=== PATIENT | female | born 1930 | race Caucasian/White ===

== ENCOUNTER 2016-12-13 15:17 | Emergency (ER) | payer MEDICARE, BC ==
--- NOTE | 2016-12-13 15:38 | ERNOTE ---
Medical Problem HPI - General Time Seen by Provider: 12/13/16 15:35 Source: patient Exam Limitations: no limitations - Immun/Allergies/Home Medications Allergies/Adverse Reactions: Allergies No Known Allergies Allergy (Verified 12/13/16 15:47) Home Medications: HOME MEDICATIONS Ibuprofen [Motrin] 400 mg PO TID PRN #30 tab 12/13/16 [Last Taken Unknown] - History of Present History Narrative: This patient is brought in via EMS for having fallen off of her stool at a restaurant and hitting her head. Patient denies any loss of consciousness she complains of some sacral pain and some pain in her neck she is alert and oriented and she has a laceration on her occipital scalp. Review of Systems - Review of Systems Constitutional: Present: no symptoms reported EYE: Present: no symptoms reported ENT: Present: no symptoms reported Respiratory: Present: no symptoms reported Cardiology: Present: no symptoms reported Gastrointestinal/Abdominal: Present: no symptoms reported Genitourinary: Present: no symptoms reported Musculoskeletal: Present: See HPI Physical Exam - Physical Exam General Appearance: Present: wd/wn, alert, no apparent distress Head Exam: Present: other - patient has a 1.2 cm superficial scalp laceration to the left occipitoparietal region of the scalp and one approximately 2 inches inferior to that approximately 1 cm and very superficial. She does have a small skin tear on the lateral aspect of her right knee which does not require stitches Eye Exam: Normal inspection: bilateral, PERRL: bilateral, EOMI: bilateral Ears, Nose, Throat: Present: normal ENT inspection Neck: Present: normal inspection, nontender Respiratory: Present: no respiratory distress, normal breath sounds, no accessory muscle use, chest nontender, lungs clear Cardiovascular/Chest: Present: regular rate, rhythm, no murmur, normal peripheral pulses Extremity Exam: Present: normal inspection, normal range of motion Neurological Exam: Present: alert, oriented, normal mood/affect - patient is completely neurologically intact without any focal neurological deficits ED Progress - Vital Signs Patient's Vital Signs:: I have reviewed the patient's vital signs. Plan - Plan Plan: CT of the head and C-spine are within normal ranges for this patient's age and stage, lacerations on patient's occipitoparietal scalp was cleansed and anesthetized with 1 mL of lidocaine with a NC on each laceration on either borders and using sandra 4 sandra were placed for the superior laceration and 2 were placed for the inferior 1 patient tolerated the procedure very well. Tdap will be administered to the patient Departure Clinical Impression: Scalp laceration Qualifiers: Encounter type: initial encounter Qualified Code(s): S01.01XA - Laceration without foreign body of scalp, initial encounter - Departure Disposition: Home self-care Condition: Good Instructions: Laceration Care, Adult, [id number] Additional Instructions: Please follow up with her primary care doctor for staple removal in approximately 1 week. Prescriptions: Ibuprofen [Motrin] 400 mg PO TID PRN #30 tab PRN Reason: Pain
[2016-12-13] MEDS ORDERED: DIPHTH,PERTUSS(ACELL),TET VAC 0.5 ML VIAL IM ONE ×2 (16:53→16:59)
[2016-12-13 17:24] VITALS: BP 161/67
== END 2016-12-13 17:12 | disposition home or self-care (01) ==
LOC: ER 15:17
PROC: 0HQ0XZZ Repair Scalp Skin, External Approach (ICD-10-PCS; principal; 2016-12-13)
DX: S01.01XA Laceration without foreign body of scalp, initial encounter (principal); W07.XXXA Fall from chair, initial encounter; Y93.89 Activity, other specified; Y92.511 Restaurant or cafe as the place of occurrence of the external cause; Z23 Encounter for immunization

== ENCOUNTER 2017-09-04 11:21 | Inpatient (IN) ==
--- NOTE | 2017-09-04 11:42 | ERNOTE ---
Neuro HPI ER Record Presenting Symptoms: other Time Seen by Provider: 09/04/17 11:22 Source: family Exam Limitations: dementia Immunizations: IMMUNIZATION HX Immunizations Up to Date Yes History of Influenza Vaccine More Information Required Hx Pneumococcal Vaccination More Information Required Allergies/Adverse Reactions: Allergies Allergy/AdvReac Type Severity Reaction Status Date / Time No Known Allergies Allergy Verified 09/04/17 11:32 Home Medications: HOME MEDICATIONS Clotrimazole [Lotrimin Cream] 1 appl TP BID 09/04/17 [Last Taken Unknown] - History of Present Illness Narrative: Patient has a history of dementia and has been at [facility] living for two months. She was recently diagnosed with a UTI and treated with macrobid (last dose last night). He daughter reports that she was talking and eating well when she last saw her two days ago. Today the patient is not herself, won' t talk, won't eat, daughter also noticed swelling in her hands and legs that she has not had before. No history available from patient Review of Systems - Narrative Narrative: unable to obtain - Patient's Past Medical History Patient History - Medical: Dementia Patient History - Cardiac/Respiratory: No pertinent hx Patient History - Cancer: No Hx of Cancer Patient History - Surgical Procedures: Cholecystectomy, , Hysterectomy , Other, Orthopedic Patient History - Other: None LMP (females 10-50): Menopausal - Social History Living Situations: assisted living Abuse History: No History of abuse Psych History: No pertinent hx Smoking Status: Never smoker Have you smoked in the past 12 months: No Do you dip or chew tobacco: No Alcohol Use: none Drug Use: none - Immunizations Immunizations Up to Date: Yes Hx Pneumococcal Vaccination: More Information Required to Determine History of Influenza Vaccine: More Information Required to Determine Physical Exam - Physical Exam General Appearance: Present: wd/wn, no apparent distress Head Exam: Present: normal inspection, no evidence of injury Eye Exam: Normal inspection: bilateral, PERRL: bilateral Ears, Nose, Throat: Present: normal pharynx Neck: Present: normal inspection, supple Respiratory: Present: no respiratory distress, normal breath sounds, lungs clear Cardiovascular/Chest: Present: regular rate, rhythm, no murmur Gastrointestinal/Abdominal: Present: nontender, nondistended Extremity Exam: Present: extremity edema - +3 both legs, left leg slighty red senior care up the lower leg and increased temp, though no signs of injury or open wounds Neurological Exam: Present: alert, other - patient follows commands, but doesn' t speak, walks with small shuffeling gait over to bed Skin Exam: Present: normal color, warm/dry [place] Coma Scale - Assess Eye Opening: Spontaneous Motor: Obeys Commands Verbal: None - refuses to speak - Total Coma Scale Total: 11 ED Progress - Results and Orders Patient's Lab Results:: I have reviewed the patient's lab results. - Vital Signs Patient's Vital Signs:: I have reviewed the patient's vital signs. Vital Signs: Vital Signs 09/04/17 11:28 Temperature 36.5 C Pulse Rate 80 Respiratory 17 Rate Blood Pressure 153/59 O2 Sat by Pulse 97 Oximetry - EKG EKG: NSR, other - no acute changes EKG read: Interp. by me - Progress/Reassessment Chief Complaint: Altered Mental Status Progress Note-Subjective: 09/04/17 13:00 discussed with family, patient will be unable to return to [facility] as confused as she is daughter doubts whether patient ever took the antibiotics as she had a hard time swallowing and might have spit out the medications later 09/04/17 13:05 discussed with protective services case workeralex to admit for observation 09/04/17 13:07 discussed with alex Chavez to admit for observation for UTI and early cellulitis, DVT less likely as both legs are swollen and fingers as well okay to start rocephin Departure Clinical Impression: Confusion UTI (urinary tract infection) Qualifiers: Urinary tract infection type: acute cystitis Hematuria presence: with hematuria Qualified Code(s): N30.01 - Acute cystitis with hematuria Dementia Qualifiers: Dementia type: unspecified type Dementia behavioral disturbance: with behavioral disturbance Qualified Code(s): F03.91 - Unspecified dementia with behavioral disturbance Cellulitis Qualifiers: Site of cellulitis: extremity Site of cellulitis of extremity: lower extremity Laterality: left Qualified Code(s): L03.116 - Cellulitis of left lower limb - Departure Disposition: Still a patient Condition: Stable
[2017-09-04 11:53] LABS: Hematocrit 32.7 % (37.0-47.0); Hemoglobin 10.8 gm/dL (12.5-16.0); Mean Cell Volume 92.9 fl (78-100); Mean Corpuscular Hemoglobin 30.7 pg (27-31); Mean Platelet Volume 9.2 fl (8-12.5); Neutrophil # 5.3 K/mm3 (1.3-6.0); Neutrophil % 62.4 % (42-75.0); Platelet Count 302 K/mm3 (150-450); Red Blood Count 3.52 M/mm3 (4.2-5.4); Red Cell Distribution Width 13.7 % (11.5-14.0); White Blood Count 8.4 K/mm3 (4.0-10.5)
[2017-09-04 12:11] LABS: Troponin I Less than 0.017 ng/ml (0.00-0.10)
[2017-09-04 12:13] LABS: ALT 19 U/L (19-67); AST 23 U/L (0-48); Albumin * 3.2 gm/dl (3.4-5.0); Alkaline Phosphatase * 57 U/L (50-170); Anion Gap 9.8 mmol/L (6.8-13.8); BNP * 354 pg/mL (5-550); BUN/Creatinine Ratio 18.6 (9.0-21.6); Bilirubin, Total 0.4 mg/dL (0.0-1.1); Blood Urea Nitrogen 19 mg/dL (3-23); CRP 1.4 mg/dL (0.0-0.9); Ca. Corrected For Albumin 9.8 mg/dL (8.4-10.2); Calcium * 9.5 mg/dL (7.9-10.9); Carbon Dioxide 27.6 mmol/L (24-32.6); Chloride 104 mmol/L (97-106); Glucose * 109 mg/dL (70-110); Potassium 4.4 mmol/L (3.4-4.6); Sodium 137 mmol/L (132-142); Total Protein 6.7 gm/dL (6.2-8.2)
[2017-09-04 12:21] LABS: Urine Bilirubin Negative (NEGATIVE); Urine Ketone Negative (NEGATIVE); Urine Nitrite Negative (NEGATIVE); Urine Protein Negative (NEGATIVE); Urine Urobilinogen Normal (NORMAL)
[2017-09-04 12:31] LABS: Urine Appearance Clear (CLEAR); Urine Blood 5 /ul (NEGATIVE); Urine Color Yellow
[2017-09-04 12:32] LABS: Urine Bacteria TRACE; Urine WBC 25-50 /hpf (0-5)
--- NOTE | 2017-09-04 23:25 | HP ---
Chief Complaint - Chief Complaint Date of Service: 09/04/17 Time of Service: 16:45 Chief Complaint: Altered mental status History of Present Illness: Mabel is an 87 yo female who resides at the dementia unit of her assisted living facility. However it is reported that she is normally very calm and pleasant. Over the last 24 hours she has been more agitated and more confused than her usual. She was recently diagnosed with UTI and started on macrobid. - Patient's Past Medical History Patient History - Medical: Dementia Patient History - Cardiac/Respiratory: No pertinent hx Patient History - Cancer: No Hx of Cancer Patient History - Surgical Procedures: Cholecystectomy, , Hysterectomy , Other, Orthopedic Patient History - Other: None LMP (females 10-50): Menopausal - Family History Mother Family History - Medical: History Unknown Family History - Cardiac/Respiratory: History Unknown Family History - Cancer: History Unknown Father Family History - Medical: History Unknown Family History - Cardiac/Respiratory: History Unknown Family History - Cancer: History Unknown - Social History Living Situations: assisted living Abuse History: No History of abuse Psych History: No pertinent hx, Current tx/ever been on anti-depressants or anti -anxiety meds Smoking Status: Never smoker Have you smoked in the past 12 months: No Do you dip or chew tobacco: No Alcohol Use: none Drug Use: none - Immunizations Immunizations Up to Date: Yes Hx Pneumococcal Vaccination: More Information Required to Determine History of Influenza Vaccine: More Information Required to Determine Review Of Systems (GEN) - Review of Systems Additional Comments: Unable to perform ROS at this time, patient does not communicate with me and there are no family or assisted living facility staff present. Immunizations: IMMUNIZATION HX Immunizations Up to Date Yes History of Influenza Vaccine More Information Required Hx Pneumococcal Vaccination More Information Required Allergies/Adverse Reactions: Allergies Allergy/AdvReac Type Severity Reaction Status Date / Time No Known Allergies Allergy Verified 09/04/17 15:11 Home Medications: HOME MEDICATIONS Acetaminophen [Tylenol] 650 mg PO Q8H PRN 09/04/17 [Last Taken 08/26/17] Clotrimazole [Lotrimin Cream] 1 appl TP BID 09/04/17 [Last Taken Unknown] Multivitamin [Multivitamins] 1 each PO DAILY 09/04/17 [Last Taken 09/03/17] Exam - Exam Vital Signs: Vital Signs - Last Taken Temp 36.7 C 09/04/17 20:00 Pulse 94 09/04/17 20:00 Resp 20 09/04/17 20:00 BP 173/70 09/04/17 20:00 Pulse Ox 99 09/04/17 20:00 Constitutional: Present: No distress, Somnolent, Elderly Respiratory: Present: lungs clear, normal breath sounds Cardiovascular/Chest: Present: regular rate, rhythm, no murmur Abdomen: Present: Normal bowel sounds, soft, nontender, nondistended Skin Exam: Present: normal color, warm/dry, no cyanosis Neurologic: Present: disoriented x 3 Diagnostic Studies: Laboratory Results WBC 8.4 K/mm3 (4.0-10.5) 09/04/17 11:53 RBC 3.52 M/mm3 (4.2-5.4) L 09/04/17 11:53 Hgb 10.8 gm/dL (12.5-16.0) L 09/04/17 11:53 Hct 32.7 % (37.0-47.0) L 09/04/17 11:53 MCV 92.9 fl (78-100) 09/04/17 11:53 MCH 30.7 pg (27-31) 09/04/17 11:53 MCHC 33.0 g/dl (32-36) 09/04/17 11:53 RDW 13.7 % (11.5-14.0) 09/04/17 11:53 Plt Count 302 K/mm3 (150-450) 09/04/17 11:53 MPV 9.2 fl (8-12.5) 09/04/17 11:53 Immature Gran % (Auto) 0.20 % (0.001-0.429) 09/04/17 11:53 Immature Gran # (Auto) 0.02 K/mm3 (0.000-0.0310) 09/04/17 11:53 Neutrophils % 62.4 % (42-75.0) 09/04/17 11:53 Lymphocytes % 25.4 % (20-51) 09/04/17 11:53 Monocytes % 10.5 % (0.0-9) H 09/04/17 11:53 Eosinophils % 1.0 % (0.0-3.0) 09/04/17 11:53 Basophils % 0.5 % (0.0-1.0) 09/04/17 11:53 Nucleated RBC % 0.0 k/mm3 (0-1) 09/04/17 11:53 Neutrophils # 5.3 K/mm3 (1.3-6.0) 09/04/17 11:53 Lymphocytes # 2.13 k/mm3 (1.5-3.5) 09/04/17 11:53 Monocytes # 0.9 k/mm3 (0.0-1.0) 09/04/17 11:53 Eosinophils # 0.1 k/mm3 (0.0-0.7) 09/04/17 11:53 Absolute Basophils 0.0 k/mm3 (0.0-0.1) 09/04/17 11:53 Sodium 137 mmol/L (132-142) 09/04/17 11:53 Plasma Sodium 137 mmol/L (130-142) 09/04/17 11:53 Potassium 4.4 mmol/L (3.4-4.6) 09/04/17 11:53 Chloride 104 mmol/L (97-106) 09/04/17 11:53 Carbon Dioxide 27.6 mmol/L (24-32.6) 09/04/17 11:53 Anion Gap 9.8 mmol/L (6.8-13.8) 09/04/17 11:53 BUN 19 mg/dL (3-23) 09/04/17 11:53 Creatinine 1.02 mg/dL (0.4-1.4) 09/04/17 11:53 Est GFR (Non-Af Amer) 54 mL/min (60-130) L 09/04/17 11:53 BUN/Creatinine Ratio 18.6 (9.0-21.6) 09/04/17 11:53 Random Glucose 109 mg/dL (70-110) 09/04/17 11:53 Calcium 9.5 mg/dL (7.9-10.9) 09/04/17 11:53 Calcium Adj for Albumin 9.8 mg/dL (8.4-10.2) 09/04/17 11:53 Total Bilirubin 0.4 mg/dL (0.0-1.1) 09/04/17 11:53 AST 23 U/L (0-48) 09/04/17 11:53 ALT 19 U/L (19-67) 09/04/17 11:53 Alkaline Phosphatase 57 U/L (50-170) 09/04/17 11:53 Troponin I Less than 0.017 ng/ml (0.00-0.10) 09/04/17 11:53 C-Reactive Prot, Quant 1.4 mg/dL (0.0-0.9) H 09/04/17 11:53 B-Natriuretic Peptide 354 pg/mL (5-550) 09/04/17 11:53 Total Protein 6.7 gm/dL (6.2-8.2) 09/04/17 11:53 Albumin 3.2 gm/dl (3.4-5.0) L 09/04/17 11:53 Urine Color Yellow 09/04/17 12:08 Urine Appearance Clear (CLEAR) 09/04/17 12:08 Urine pH 7.0 pH (5.0-7.0) 09/04/17 12:08 Ur Specific [place] 1.010 SP.GR. (1.005-1.010) 09/04/17 12:08 Urine Protein Negative mg/dL (NEGATIVE) 09/04/17 12:08 Urine Glucose (UA) Negative mg/dL (NEGATIVE) 09/04/17 12:08 Urine Ketones Negative mg/dL (NEGATIVE) 09/04/17 12:08 Urine Blood 5 /ul (NEGATIVE) H 09/04/17 12:08 Urine Nitrate Negative (NEGATIVE) 09/04/17 12:08 Urine Bilirubin Negative mg/dl (NEGATIVE) 09/04/17 12:08 Urine Urobilinogen Normal EU/dl (NORMAL) 09/04/17 12:08 Ur Leukocyte Esterase 500 /ul (NEGATIVE) H 09/04/17 12:08 Urine RBC 10-25 /hpf (0-5) H 09/04/17 12:08 Urine WBC 25-50 /hpf (0-5) H 09/04/17 12:08 Ur Epithelial Cells 10-25 /hpf (0-5) H 09/04/17 12:08 Urine Bacteria Trace (NONE) 09/04/17 12:08 Urine Culture Comments Culture to follow 09/04/17 12:08 Assessment/Plan - Narrative Narrative: Mabel is an 87 yo female with altered mental status believed to be secondary to urinary tract infection that failed outpatient treatment. Will treat with rocephin IV. Will monitor mental status and vitals. Due to failed outpatient treatment of UTI will admit to acute inpatient status and plan for > 2 midnights. - Assessment/Plan (1) Altered mental status Problem: Acute (2) Dementia Problem: Chronic Qualifiers: Dementia type: unspecified type Dementia behavioral disturbance: with behavioral disturbance Qualified Code(s): F03.91 - Unspecified dementia with behavioral disturbance (3) UTI (urinary tract infection) Problem: Acute Qualifiers: Urinary tract infection type: acute cystitis Hematuria presence: with hematuria Qualified Code(s): N30.01 - Acute cystitis with hematuria
--- NOTE | 2017-09-06 08:51 | PN ---
Subjective - Date and Time Seen Date: 09/05/17 Time: 12:34 Subjective Narrative: Patient awake and alert. Disoriented x 3. Reports no concerns at this time. Pleasant. Objective - Vitals Vitals: Last Vital Signs Selected Entries 09/05/17 11:59 Temperature 36.8 C Pulse Rate 75 Respiratory Rate 18 Blood Pressure 156/54 O2 Sat by Pulse Oximetry 95 Oxygen Delivery Method Room Air - Exam Constitutional: Present: Alert, No distress. Absent: Oriented x3 Respiratory: Present: lungs clear, normal breath sounds Cardiovascular/Chest: Present: regular rate, rhythm, no murmur Abdomen: Present: Normal bowel sounds, soft. Absent: nontender, nondistended Skin Exam: Present: normal color, warm/dry. Absent: no cyanosis Neurologic: Present: disoriented x 3 Assessment/Plan Plan Narrative: Improved mentation today. Almost near reported baseline. Will continue treatment. Awaiting urine culture results. - Problems/Diagnosis (1) Altered mental status Problem: Acute (2) UTI (urinary tract infection) Problem: Acute Qualifiers: Urinary tract infection type: acute cystitis Hematuria presence: with hematuria Qualified Code(s): N30.01 - Acute cystitis with hematuria (3) Dementia Problem: Chronic Qualifiers: Dementia type: unspecified type Dementia behavioral disturbance: with behavioral disturbance Qualified Code(s): F03.91 - Unspecified dementia with behavioral disturbance
--- NOTE | 2017-09-06 09:00 | DS ---
(1) Altered mental status Problem: Resolved (2) UTI (urinary tract infection) Problem: Acute Qualifiers: Urinary tract infection type: acute cystitis Hematuria presence: with hematuria Qualified Code(s): N30.01 - Acute cystitis with hematuria Description of Stay: Mabel is an 87 yo female admitted for altered mental status and Urinary Tract Infection. Her UTI was previously diagnosed and had been attempted to treat as outpatient with macrobid, however over the last couple days she has been more confused and having abnormal behaviors. She had also been started on new psychotropic medications of Haldol. In the ER her urine was suspicious for UTI and she was started on rocephin. She as continued on IV rocephin due to reports that she does not take pills well and sometimes hides them in her mouth and then spits them out later. With the IV rocephin and holding new medications her mentation improved to her baseline. She did three days of Rocephin and urine culture came back with no growth. With her mentation at baseline, 3 days of rocephin, and a negative urine culture I believe she does not need any more rocephin and is at her baseline to be able to go back to [facility]. Procedures Performed: none Discharge Location: [facility] Disposition: Home self-care Condition: Stable Discharge Activity: Activity as tolerated Discharge Diet: General/regular food Referrals: Yeny Zimmer DO [Staff Physician] - One Week Problem Oriented Discharge Instructions to Patient/Family: Urinary Tract Infection, Adult, [id number] Additional Patient Instructions (free text): -Please make TCM appointment unless alf discharge. Thank you! Samantha @ [phone]. Complete Home Medications List: Complete Home Medication List: Acetaminophen [Tylenol] 650 mg PO Q8H PRN 09/04/17 Clotrimazole [Lotrimin Cream] 1 appl TP BID 09/04/17 Multivitamin [Multivitamins] 1 each PO DAILY 09/04/17
[2017-09-06 10:27] VITALS: BP 137/57
== END 2017-09-06 10:30 | disposition home or self-care (01) | DRG 690 ==
LOC: ER 11:21 → MS 13:15 → OBSVTOIN 09-05 12:15 → INTOOBSV 09-05 12:15
PROVIDERS: ADMIT Family Medicine; ATTEND Internal Medicine
DX: F03.90 Unspecified dementia, unspecified severity, without behavioral disturbance, psychotic disturbance, mood disturbance, and anxiety; R41.82 Altered mental status, unspecified; N30.01 Acute cystitis with hematuria
CPT/HCPCS: 36415; 71010; 71045; 80053; 81001; 83519; 83880; 84484; 85025; 86140; 87081; 87086; 93005; 96365; 99282; 99285; G0378

== ENCOUNTER 2019-06-01 21:11 | Inpatient (IN) ==
--- NOTE | 2019-06-01 21:22 | ERNOTE ---
Dyspnea - General Presenting Symptoms: other - fever Time Seen by Provider: 06/01/19 21:19 Source: EMS Exam Limitations: dementia - Immun/Allergies/Home Medications Immunizations: IMMUNIZATION HX Immunizations Up to Date Yes History of Influenza Vaccine More Information Required Hx Pneumococcal Vaccination More Information Required Allergies/Adverse Reactions: Allergies green pepper Allergy (Mild, Verified 06/01/19 21:44) RASH Home Medications: HOME MEDICATIONS Acetaminophen [Tylenol] 650 mg PO Q8H PRN 09/04/17 [Last Taken 08/26/17] Clotrimazole [Lotrimin Cream] 1 appl TP BID 09/04/17 [Last Taken Unknown] Multivitamin [Multivitamins] 1 ea PO DAILY 09/04/17 [Last Taken 09/03/17] furosemide 40 mg tablet 40 mg PO DAILY #30 tab 10/09/17 [Last Taken Unknown] melatonin 5 mg tablet 5 mg PO HS #30 tab 06/17/18 [Last Taken Unknown] Potassium Chloride [Klor-Con M20] 20 meq PO DAILY 06/01/19 [Last Taken Unknown] Zinc Oxide 1 appl TOPICAL BID 06/01/19 [Last Taken Unknown] - History of Present Illness Narrative: Patient brought by EMS from [facility] with report of patient having a fever that was not reduced by 650 mg of acetaminophen. They also state that she was lethargic although when EMS arrived they state the patient got up and walked to their cot and was not lethargic. Patient has dementia and appears in her normal state of mild confusion Severity: moderate Treatment SHOOK SPLICER: other - acetaminophen by NH staff around 20:15 Initiating event: Reports: upper resp illness Modifying Factors - (Improves): Reports: nothing Associated Symptoms-Dyspnea: Reports: cough - mild Review of Systems - Narrative Narrative: ROS is limited and suspect due to patient's dementia. - Review of Systems Constitutional: Absent: recent illness ENT: Absent: nose congestion Respiratory: Absent: shortness of breath, cough Gastrointestinal/Abdominal: Absent: nausea, vomiting, abdominal pain Genitourinary: Absent: dysuria Skin: Absent: rash Neurological: Absent: headache Medical History (Last Reviewed 06/01/19 @ 23:18 by Anthony George DO) Agitation Onset Date: Unknown Anemia Onset Date: Unknown Arthritis Onset Date: Unknown Asthma Onset Date: Unknown Hepatitis Onset Date: Unknown Hernia Onset Date: Unknown Kidney disease Onset Date: Unknown Dementia Onset Date: Unknown Late onset Alzheimer's disease with behavioral disturbance Onset Date: ~08/06/17 Surgical History: Surgical History (Last Reviewed 06/01/19 @ 23:18 by Anthony Goerge DO) H/O section Onset Date: Unknown History of kidney surgery Onset Date: Unknown Joint replaced Onset Date: Unknown LEFT KNEE [place] teeth extracted Onset Date: Unknown Family History: Family History (Last Reviewed 06/01/19 @ 23:18 by Anthony George DO) Brother Asthma Father , AGE 70 RESPIRATORY PROBLEM Headache Mother , AGE 62 CVA (cerebral vascular accident) Myocardial infarction Social History: (Last Reviewed 06/01/19 @ 23:18 by Anthony George DO) Social History: Marital status: / current occupational status: retired Highest education level completed: Bachelor's degree Service: No Tobacco: Smoking Status: Never smoker Alcohol: alcohol intake: never Substance Use: substance use type: does not use Dietary Habits: caffeine: No Physical Exam - Physical Exam General Appearance: Present: wd/wn, alert, no apparent distress Head Exam: Present: normal inspection, no evidence of injury Eye Exam: Normal inspection: bilateral Ears, Nose, Throat: Present: normal ENT inspection Neck: Present: normal inspection, nontender, supple Respiratory: Present: no respiratory distress, normal breath sounds, lungs clear Cardiovascular/Chest: Present: regular rate, rhythm, no murmur Gastrointestinal/Abdominal: Present: normal bowel sounds, nontender, nondist ended, soft Extremity Exam: Present: normal inspection, normal range of motion Neurological Exam: Present: alert, disoriented to time, disoriented to place Skin Exam: Present: warm/dry, skin rash - medial legs somewhat serpantine erythema. Progress - Results and Orders Patient's Lab Results:: I have reviewed the patient's lab results. Results and Orders: Laboratory Tests 06/01/19 06/01/19 06/01/19 21:32 21:33 21:39 WBC 8.3 Hgb 12.0 L Hct 36.5 L Plt Count 215 Neutrophils % 80.5 H Plasma Sodium Potassium Chloride Carbon Dioxide BUN Creatinine Random Glucose Lactic Acid, Venous Calcium Total Bilirubin AST ALT Alkaline Phosphatase B-Natriuretic Peptide Amylase Lipase Urine Color Yellow Urine Appearance Clear Urine pH 5.5 Ur Specific [place] 1.020 Urine Glucose (UA) 250 H Urine Blood 5 H Urine Nitrate Positive H Ur Leukocyte Esterase Negative Urine Bacteria 1+ H Urine Culture Comments Culture to follow Acetaminophen Influenza Type A Ag Negative Influenza Type B Ag Negative 06/01/19 06/01/19 06/01/19 21:39 21:39 21:45 WBC Hgb Hct Plt Count Neutrophils % Plasma Sodium 143 H Potassium 3.7 Chloride 106 Carbon Dioxide 21.1 L BUN 33 H Creatinine 1.38 Random Glucose 213 H Lactic Acid, Venous 2.6 H* Calcium 9.3 Total Bilirubin 1.0 AST 962 H ALT 669 H Alkaline Phosphatase 93 B-Natriuretic Peptide 441 Amylase Lipase Urine Color Urine Appearance Urine pH Ur Specific [place] Urine Glucose (UA) Urine Blood Urine Nitrate Ur Leukocyte Esterase Urine Bacteria Urine Culture Comments Acetaminophen 2.4 L Influenza Type A Ag Influenza Type B Ag 06/01/19 21:45 WBC Hgb Hct Plt Count Neutrophils % Plasma Sodium Potassium Chloride Carbon Dioxide BUN Creatinine Random Glucose Lactic Acid, Venous Calcium Total Bilirubin AST ALT Alkaline Phosphatase B-Natriuretic Peptide Amylase 62 Lipase 197 Urine Color Urine Appearance Urine pH Ur Specific [place] Urine Glucose (UA) Urine Blood Urine Nitrate Ur Leukocyte Esterase Urine Bacteria Urine Culture Comments Acetaminophen Influenza Type A Ag Influenza Type B Ag - Vital Signs Patient's Vital Signs:: I have reviewed the patient's vital signs. - X-Ray X-Ray #1 X-Ray: chest Interpretation: Interp. by me X-ray Comments: No infiltrate or effusion. Cardiac silhouette appears normal. - Progress/Reassessment Progress:: Improved Progress Note-Subjective: 06/01/19 23:[address] Kraft and he agrees with admission. 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
[2019-06-01 21:45] LABS: Urine Bilirubin Negative (NEGATIVE); Urine Ketone Negative (NEGATIVE); Urine Protein Negative (NEGATIVE); Urine Urobilinogen Normal (NORMAL); Urine pH 5.5 pH (5.0-7.0)
[2019-06-01 21:46] LABS: Hematocrit 36.5 % (37.0-47.0); Mean Cell Volume 91.9 fl (78-100); Mean Corpuscular Hemoglobin 30.2 pg (27-31); Mean Corpuscular Hgb Conc 32.9 g/dl (32-36); Neutrophil # 6.7 K/mm3 (1.3-6.0); Neutrophil % 80.5 % (42-75.0); Platelet Count 215 K/mm3 (150-450); Red Blood Count 3.97 M/mm3 (4.2-5.4); Red Cell Distribution Width 13.9 % (11.5-14.0); White Blood Count 8.3 K/mm3 (4.0-10.5)
[2019-06-01 21:54] LABS: Urine Appearance Clear (CLEAR); Urine Bacteria 1+; Urine Blood 5 /ul (NEGATIVE); Urine Color Yellow; Urine Nitrite Positive (NEGATIVE); Urine RBC None Seen /hpf (0-5); Urine WBC 0-5 /hpf (0-5)
[2019-06-01 22:05] LABS: Albumin * 3.4 gm/dl (3.4-5.0); Anion Gap 17.6 mmol/L (6.8-13.8); BUN/Creatinine Ratio 23.9 (9.0-21.6); Ca. Corrected For Albumin 9.5 mg/dL (8.4-10.2); Calcium * 9.3 mg/dL (7.9-10.9); Carbon Dioxide 21.1 mmol/L (24-32.6); Potassium 3.7 mmol/L (3.4-4.6); Total Protein 7.1 gm/dL (6.2-8.2)
[2019-06-01 22:39] LABS: Amylase * 62 U/L (25-115); Lipase 197 U/L (73-393)
[2019-06-01] MEDS ORDERED: IBUPROFEN 200 MG TABLET PO ONE (23:06)
[2019-06-01] MEDS ORDERED: cefTRIAXone SODIUM 1,000 MG/100 ML BAG IV ONE (23:22)
[2019-06-02] MEDS ORDERED: NORMAL SALINE 1,000 ML IV PRN (00:22)
[2019-06-02] MEDS ORDERED: ACETAMINOPHEN 325 MG TABLET PO PRN (10:09)
[2019-06-02] MEDS ORDERED: AZITHROMYCIN 500 MG in DEXTROSE 5 % IN WATER 250 ML IV SCH ×2 (10:15)
[2019-06-02 10:30] LABS: Hematocrit 36.7 % (37.0-47.0); Hemoglobin 11.9 gm/dL (12.5-16.0); Mean Cell Volume 92.9 fl (78-100); Mean Corpuscular Hemoglobin 30.1 pg (27-31); Mean Corpuscular Hgb Conc 32.4 g/dl (32-36); Mean Platelet Volume 9.9 fl (8-12.5); Neutrophil # 12.3 K/mm3 (1.3-6.0); Neutrophil % 74.7 % (42-75.0); Platelet Count 203 K/mm3 (150-450); Red Blood Count 3.95 M/mm3 (4.2-5.4); Red Cell Distribution Width 14.1 % (11.5-14.0); White Blood Count 16.5 K/mm3 (4.0-10.5)
[2019-06-02] MEDS ORDERED: NORMAL SALINE 1,000 ML IV SCH (10:45)
[2019-06-02 10:52] LABS: Albumin * 3.1 gm/dl (3.4-5.0); BUN/Creatinine Ratio 23.4 (9.0-21.6); Bilirubin, Total 1.4 mg/dL (0.0-1.1); Ca. Corrected For Albumin 9.6 mg/dL (8.4-10.2); Calcium * 9.2 mg/dL (7.9-10.9); Carbon Dioxide 23.2 mmol/L (24-32.6); Potassium 3.2 mmol/L (3.4-4.6); Total Protein 6.8 gm/dL (6.2-8.2)
[2019-06-02] MEDS ORDERED: ENOXAPARIN SODIUM 40 MG/0.4 ML SYRG SC SCH (11:30)
[2019-06-02] MEDS ORDERED: POTASSIUM BICARBONATE/CIT AC 25 MEQ TABLET.EFF PO ONE (13:18)
--- NOTE | 2019-06-02 14:02 | HPDIS ---
Chief Complaint - Chief Complaint Date of Service: 06/02/19 Time of Service: 09:50 Chief Complaint: fever History of Present Illness: 88-year-old female with a past medical history of dementia, anemia, asthma, arthritis, chronic kidney disease, hepatitis presents from [facility] with complaints of fever. On presentation she was found to have positive UA, chest x-ray positive for left lower lobe infiltrate. She was started on ceftriaxone in the emergency department. Vitals were stable on presentation and she had a fever of 39.1. She fever fever was admitted for sepsis with urinary tract infection. She also has a community-acquired pneumonia. 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" Hernia Onset Date: Unknown Kidney disease Onset Date: Unknown Dementia Onset Date: Unknown Late onset Alzheimer's disease with behavioral disturbance Onset Date: ~08/06/17 Surgical History: Surgical History (Last Reviewed 06/02/19 @ 01:25 by Krystal Lezama RN) H/O section Onset Date: Unknown History of kidney surgery Onset Date: Unknown Joint replaced Onset Date: Unknown LEFT KNEE [place] teeth extracted Onset Date: Unknown Family History: Family History (Last Reviewed 06/02/19 @ 01:25 by Krystal Lezama RN) Brother Asthma Father , AGE 70 RESPIRATORY PROBLEM Headache Mother , AGE 62 CVA (cerebral vascular accident) Myocardial infarction Social History: (Last Reviewed 06/02/19 @ 01:25 by Krystal Lezama RN) Social History: Marital status: / current occupational status: retired Highest education level completed: Bachelor's degree Service: No Tobacco: Smoking Status: Never smoker Alcohol: alcohol intake: never Substance Use: substance use type: does not use Dietary Habits: caffeine: No Review Of Systems (GEN) - Review of Systems Generalized/Overall Review: Present: Fever Respiratory: Present: Cough. Absent: Shortness of Breath Cardiac: Absent: Chest Pain Abdominal: Absent: Abdominal Pain Misc: All systems neg except as marked Immunizations: IMMUNIZATION HX Immunizations Up to Date Yes History of Influenza Vaccine More Information Required Hx Pneumococcal Vaccination More Information Required Allergies/Adverse Reactions: Allergies Allergy/AdvReac Type Severity Reaction Status Date / Time green pepper Allergy Mild RASH Verified 06/01/19 21:44 Home Medications: HOME MEDICATIONS Acetaminophen [Tylenol] 650 mg PO Q8H PRN 09/04/17 [Last Taken 08/26/17] Clotrimazole [Lotrimin Cream] 1 appl TP BID 09/04/17 [Last Taken Unknown] Multivitamin [Multivitamins] 1 ea PO DAILY 09/04/17 [Last Taken 09/03/17] furosemide 40 mg tablet 40 mg PO DAILY #30 tab 10/09/17 [Last Taken Unknown] melatonin 5 mg tablet 5 mg PO HS #30 tab 06/17/18 [Last Taken Unknown] Potassium Chloride [Klor-Con M20] 20 meq PO DAILY 06/01/19 [Last Taken Unknown] Zinc Oxide 1 appl TOPICAL BID 06/01/19 [Last Taken Unknown] Azithromycin [Zithromax] 250 mg PO DAILY #4 tab 06/02/19 [Last Taken Unknown] Cefpodoxime Proxetil 200 mg PO BID #8 tab 06/02/19 [Last Taken Unknown] Exam - Exam Vital Signs: Vital Signs - Last Taken Temp 37.2 C 06/02/19 10:29 Pulse 72 06/02/19 10:29 Resp 16 06/02/19 10:29 BP 108/45 06/02/19 10:29 Pulse Ox 93 06/02/19 10:29 Constitutional: Present: Alert, Cooperative, Well developed, Well nourished, No distress, Elderly ENT Exam: Present: hearing grossly normal, moist mucous membranes Eye Exam: bilateral eye: normal inspection, EOMI Neck: Present: non-tender, supple. Absent: lymphadenopathy (R), lymphadenopathy (L) Back Exam: Present: normal inspection, no CVA tenderness, no vertebral tenderness Respiratory: Present: lungs clear, no respiratory distress, no accessory muscle use, No wheezing. Absent: crackles, rhonchi Cardiovascular/Chest: Present: normal peripheral pulses, regular rate, rhythm, no edema, no murmur Peripheral Pulses: dorsalis-pedis (R): 1+, dorsalis-pedis (L): 1+ Abdomen: Present: Normal bowel sounds, soft, nontender Extremity: Present: no pedal edema Skin Exam: Present: normal color, warm/dry, no cyanosis Neurologic: Present: alert, normal mood/affect Appearance: Present: appropriate appearance, impaired insight, impaired remote memory Eye contact: Present: cooperative Thoughts: Present: normal mood /affect Diagnostic Studies: Abnormal Lab Results 06/01/19 06/01/19 06/01/19 Range/Units 21:33 21:39 21:39 WBC (4.0-10.5) K/mm3 RBC 3.97 L (4.2-5.4) M/mm3 Hgb 12.0 L (12.5-16.0) gm/dL Hct 36.5 L (37.0-47.0) % RDW (11.5-14.0) % Immature Gran # (Auto) (0.000-0.0310) K/mm3 Neutrophils % 80.5 H (42-75.0) % Lymphocytes % 12.8 L (20-51) % Neutrophils # 6.7 H (1.3-6.0) K/mm3 Lymphocytes # 1.06 L (1.5-3.5) k/mm3 Monocytes # (0.0-1.0) k/mm3 Sodium (132-142) mmol/L Plasma Sodium 143 H (130-142) mmol/L Potassium (3.4-4.6) mmol/L Chloride (97-106) mmol/L Carbon Dioxide 21.1 L (24-32.6) mmol/L Anion Gap 17.6 H (6.8-13.8) mmol/L BUN 33 H (3-23) mg/dL Est GFR (Non-Af Amer) 38 L D (60-130) mL/min BUN/Creatinine Ratio 23.9 H (9.0-21.6) Random Glucose 213 H (70-110) mg/dL Lactic Acid, Venous (0.4-2.0) mmol/L Total Bilirubin (0.0-1.1) mg/dL AST 962 H (0-48) U/L ALT 669 H (19-67) U/L Albumin (3.4-5.0) gm/dl Urine Glucose (UA) 250 H (NEGATIVE) mg/dL Urine Blood 5 H (NEGATIVE) /ul Urine Nitrate Positive H (NEGATIVE) Urine Bacteria 1+ H (NONE) Acetaminophen (10.0-30.0) mcg/mL 06/01/19 06/01/19 06/02/19 Range/Units 21:39 21:45 01:05 WBC (4.0-10.5) K/mm3 RBC (4.2-5.4) M/mm3 Hgb (12.5-16.0) gm/dL Hct (37.0-47.0) % RDW (11.5-14.0) % Immature Gran # (Auto) (0.000-0.0310) K/mm3 Neutrophils % (42-75.0) % Lymphocytes % (20-51) % Neutrophils # (1.3-6.0) K/mm3 Lymphocytes # (1.5-3.5) k/mm3 Monocytes # (0.0-1.0) k/mm3 Sodium (132-142) mmol/L Plasma Sodium (130-142) mmol/L Potassium (3.4-4.6) mmol/L Chloride (97-106) mmol/L Carbon Dioxide (24-32.6) mmol/L Anion Gap (6.8-13.8) mmol/L BUN (3-23) mg/dL Est GFR (Non-Af Amer) (60-130) mL/min BUN/Creatinine Ratio (9.0-21.6) Random Glucose (70-110) mg/dL Lactic Acid, Venous 2.6 H* 2.2 H* (0.4-2.0) mmol/L Total Bilirubin (0.0-1.1) mg/dL AST (0-48) U/L ALT (19-67) U/L Albumin (3.4-5.0) gm/dl Urine Glucose (UA) (NEGATIVE) mg/dL Urine Blood (NEGATIVE) /ul Urine Nitrate (NEGATIVE) Urine Bacteria (NONE) Acetaminophen 2.4 L (10.0-30.0) mcg/mL 06/02/19 06/02/19 Range/Units 10:28 10:28 WBC 16.5 H D (4.0-10.5) K/mm3 RBC 3.95 L (4.2-5.4) M/mm3 Hgb 11.9 L (12.5-16.0) gm/dL Hct 36.7 L (37.0-47.0) % RDW 14.1 H (11.5-14.0) % Immature Gran # (Auto) 0.07 H (0.000-0.0310) K/mm3 Neutrophils % (42-75.0) % Lymphocytes % 18.2 L (20-51) % Neutrophils # 12.3 H (1.3-6.0) K/mm3 Lymphocytes # (1.5-3.5) k/mm3 Monocytes # 1.1 H (0.0-1.0) k/mm3 Sodium 144 H (132-142) mmol/L Plasma Sodium 144 H (130-142) mmol/L Potassium 3.2 L (3.4-4.6) mmol/L Chloride 111 H (97-106) mmol/L Carbon Dioxide 23.2 L (24-32.6) mmol/L Anion Gap (6.8-13.8) mmol/L BUN 26 H (3-23) mg/dL Est GFR (Non-Af Amer) 49 L D (60-130) mL/min BUN/Creatinine Ratio 23.4 H (9.0-21.6) Random Glucose (70-110) mg/dL Lactic Acid, Venous (0.4-2.0) mmol/L Total Bilirubin 1.4 H (0.0-1.1) mg/dL AST 522 H (0-48) U/L ALT 723 H (19-67) U/L Albumin 3.1 L (3.4-5.0) gm/dl Urine Glucose (UA) (NEGATIVE) mg/dL Urine Blood (NEGATIVE) /ul Urine Nitrate (NEGATIVE) Urine Bacteria (NONE) Acetaminophen (10.0-30.0) mcg/mL Microbiology 06/01/19 21:33 Urine Culture - Preliminary Urine,Catheterized Gram Negative Bacilli Laboratory Results WBC 16.5 K/mm3 (4.0-10.5) H D 06/02/19 10:28 RBC 3.95 M/mm3 (4.2-5.4) L 06/02/19 10:28 Hgb 11.9 gm/dL (12.5-16.0) L 06/02/19 10:28 Hct 36.7 % (37.0-47.0) L 06/02/19 10:28 MCV 92.9 fl (78-100) 06/02/19 10:28 MCH 30.1 pg (27-31) 06/02/19 10:28 MCHC 32.4 g/dl (32-36) 06/02/19 10:28 RDW 14.1 % (11.5-14.0) H 06/02/19 10:28 Plt Count 203 K/mm3 (150-450) 06/02/19 10:28 MPV 9.9 fl (8-12.5) 06/02/19 10:28 Immature Gran % (Auto) 0.40 % (0.001-0.429) 06/02/19 10: Immature Gran # (Auto) 0.07 K/mm3 (0.000-0.0310) H 06/02/19 10:28 Neutrophils % 74.7 % (42-75.0) 06/02/19 10: Lymphocytes % 18.2 % (20-51) L 06/02/19 10: Monocytes % 6.4 % (0.0-9) 06/02/19 10: Eosinophils % 0.1 % (0.0-3.0) 06/02/19 10: Basophils % 0.2 % (0.0-1.0) 06/02/19 10: Nucleated RBC % 0.0 k/mm3 (0-1) 06/02/19 10:28 Neutrophils # 12.3 K/mm3 (1.3-6.0) H 06/02/19 10: Lymphocytes # 3.00 k/mm3 (1.5-3.5) 06/02/19 10: Monocytes # 1.1 k/mm3 (0.0-1.0) H 06/02/19 10:28 Eosinophils # 0.0 k/mm3 (0.0-0.7) 06/02/19 10:28 Absolute Basophils 0.0 k/mm3 (0.0-0.1) 06/02/19 10:28 Sodium 144 mmol/L (132-142) H 06/02/19 10:28 Plasma Sodium 144 mmol/L (130-142) H 06/02/19 10:28 Potassium 3.2 mmol/L (3.4-4.6) L 06/02/19 10:28 Chloride 111 mmol/L (97-106) H 06/02/19 10:28 Carbon Dioxide 23.2 mmol/L (24-32.6) L 06/02/19 10:28 Anion Gap 13.0 mmol/L (6.8-13.8) 06/02/19 10:28 BUN 26 mg/dL (3-23) H 06/02/19 10:28 Creatinine 1.11 mg/dL (0.4-1.4) 06/02/19 10:28 Est GFR (Non-Af Amer) 49 mL/min (60-130) L D 06/02/19 10:28 BUN/Creatinine Ratio 23.4 (9.0-21.6) H 06/02/19 10:28 Random Glucose 108 mg/dL (70-110) D 06/02/19 10:28 Lactic Acid, Venous 1.5 mmol/L (0.4-2.0) 06/02/19 10:28 Calcium 9.2 mg/dL (7.9-10.9) 06/02/19 10:28 Calcium Adj for Albumin 9.6 mg/dL (8.4-10.2) 06/02/19 10:28 Total Bilirubin 1.4 mg/dL (0.0-1.1) H 06/02/19 10:28 AST 522 U/L (0-48) H 06/02/19 10:28 ALT 723 U/L (19-67) H 06/02/19 10:28 Alkaline Phosphatase 93 U/L (50-170) 06/02/19 10:28 B-Natriuretic Peptide 441 pg/mL (5-550) 06/01/19 21:39 Total Protein 6.8 gm/dL (6.2-8.2) 06/02/19 10:28 Albumin 3.1 gm/dl (3.4-5.0) L 06/02/19 10:28 Amylase 62 U/L (25-115) 06/01/19 21:45 Lipase 197 U/L (73-393) 06/01/19 21:45 Urine Color Yellow 06/01/19 21:33 Urine Appearance Clear (CLEAR) 06/01/19 21:33 Urine pH 5.5 pH (5.0-7.0) 06/01/19 21:33 Ur Specific [place] 1.020 SP.GR. (1.005-1.010) 06/01/19 21:33 Urine Protein Negative mg/dL (NEGATIVE) 06/01/19 21:33 Urine Glucose (UA) 250 mg/dL (NEGATIVE) H 06/01/19 21:33 Urine Ketones Negative mg/dL (NEGATIVE) 06/01/19 21:33 Urine Blood 5 /ul (NEGATIVE) H 06/01/19 21:33 Urine Nitrate Positive (NEGATIVE) H 06/01/19 21:33 Urine Bilirubin Negative mg/dl (NEGATIVE) 06/01/19 21:33 Urine Urobilinogen Normal EU/dl (NORMAL) 06/01/19 21:33 Ur Leukocyte Esterase Negative /ul (NEGATIVE) 06/01/19 21:33 Urine RBC None seen /hpf (0-5) 06/01/19 21:33 Urine WBC 0-5 /hpf (0-5) 06/01/19 21:33 Ur Epithelial Cells 0-5 /hpf (0-5) 06/01/19 21:33 Urine Bacteria 1+ (NONE) H 06/01/19 21:33 Urine Culture Comments Culture to follow 06/01/19 21:33 Acetaminophen 2.4 mcg/mL (10.0-30.0) L 06/01/19 21:45 Influenza Type A Ag Negative (NEGATIVE) 06/01/19 21:32 Influenza Type B Ag Negative (NEGATIVE) 06/01/19 21:32 Assessment/Plan - Narrative Narrative: 88-year-old female with a past medical history of dementia, anemia, asthma, arthritis, chronic kidney disease, hepatitis presents from [facility] with complaints of fever. On presentation she was found to have positive UA, chest x-ray positive for left lower lobe infiltrate. She was started on ceftriaxone in the emergency department. Vitals were stable on presentation and she had a fever of 39.1. She fever fever was admitted for sepsis with urinary tract infection. She also has a community-acquired pneumonia. Plan #1 I will start azithromycin 500 mg IV today. Followed by azithromycin 250 mg orally for 4 days. #2 continue with Rocephin 1 g every 24 hours #3 resume home medications for comorbidities #4 regular diet - Assessment/Plan (1) Pneumonia of left lower lobe due to group B Streptococcus Problem: Acute (2) UTI (urinary tract infection) Problem: Acute Qualifiers: Urinary tract infection type: acute cystitis Hematuria presence: with hematuria Qualified Code(s): N30.01 - Acute cystitis with hematuria (3) Dementia Problem: Chronic Qualifiers: Dementia type: unspecified type Dementia behavioral disturbance: with behavioral disturbance Qualified Code(s): F03.91 - Unspecified dementia with behavioral disturbance (4) Sepsis Problem: Resolved Qualifiers: Sepsis type: sepsis due to unspecified organism Sepsis acute organ dysfunction status: with acute organ dysfunction Severe sepsis shock status: without septic shock (5) CKD (chronic kidney disease) stage 3, GFR 30-59 ml/min Problem: Acute (6) Arthritis Problem: Acute (7) Leukocytosis Problem: Acute (8) Lactic acidosis Problem: Resolved (9) Hypokalemia Problem: Acute (10) Hypernatremia Problem: Acute (1) Pneumonia of left lower lobe due to group B Streptococcus Problem: Acute (2) UTI (urinary tract infection) Problem: Acute Qualifiers: Urinary tract infection type: acute cystitis Hematuria presence: with hematuria Qualified Code(s): N30.01 - Acute cystitis with hematuria (3) Dementia Problem: Chronic Qualifiers: Dementia type: unspecified type Dementia behavioral disturbance: with behavioral disturbance Qualified Code(s): F03.91 - Unspecified dementia with behavioral disturbance (4) Sepsis Problem: Resolved Qualifiers: Sepsis type: sepsis due to unspecified organism Sepsis acute organ dysfunction status: with acute organ dysfunction Severe sepsis shock status: without septic shock (5) CKD (chronic kidney disease) stage 3, GFR 30-59 ml/min Problem: Acute (6) Arthritis Problem: Acute (7) Leukocytosis Problem: Acute (8) Lactic acidosis Problem: Resolved (9) Hypokalemia Problem: Acute (10) Hypernatremia Problem: Acute Date of Discharge:: 06/02/19 Hospital Course: 88-year-old female with a past medical history of dementia, anemia, asthma, arthritis, chronic kidney disease, hepatitis presents from [facility] with complaints of fever. On presentation she was found to have positive UA, chest x-ray positive for left lower lobe infiltrate. She was started on ceftriaxone in the emergency department. Vitals were stable on presentation and she had a fever of 39.1. She fever fever was admitted for sepsis with urinary tract infection. She also has a community-acquired pneumonia. She will need to complete a 5-day course of Cefpodoxime and azithromycin on discharge. She is stable to be discharged home today. She will follow-up with me in 1-2 weeks in the office. She should obtain a CBC and BMP in 1 week. Procedures Performed: none Results and Findings: Pending Mircobiology Results 06/01/19 21:33 Urine,Catheterized Urine Culture - Preliminary Gram Negative Bacilli Lab Pending Results 06/01/19 21:32: Influenza Type A Ag Negative, Influenza Type B Ag Negative 06/01/19 21:33: Urine Color Yellow, Urine Appearance Clear, Urine pH 5.5, Ur Specific [place] 1.020, Urine Protein Negative, Urine Glucose (UA) 250 H, Urine Ketones Negative, Urine Blood 5 H, Urine Nitrate Positive H, Urine Bilirubin Negative, Urine Urobilinogen Normal, Ur Leukocyte Esterase Negative, Urine RBC None seen, Urine WBC 0-5, Ur Epithelial Cells 0-5, Urine Bacteria 1+ H, Urine Culture Comments Culture to follow 06/01/19 21:39: WBC 8.3, RBC 3.97 L, Hgb 12.0 L, Hct 36.5 L, MCV 91.9, MCH 30.2, MCHC 32.9, RDW 13.9, Plt Count 215, MPV 10.0, Immature Gran % (Auto) 0.20, Immature Gran # (Auto) 0.02, Neutrophils % 80.5 H, Lymphocytes % 12.8 L, Monocytes % 6.3, Eosinophils % 0.0, Basophils % 0.2, Nucleated RBC % 0.0, Neutrophils # 6.7 H, Lymphocytes # 1.06 L, Monocytes # 0.5, Eosinophils # 0.0, Absolute Basophils 0.0 06/01/19 21:39: Sodium 141, Plasma Sodium 143 H, Potassium 3.7, Chloride 106, Carbon Dioxide 21.1 L, Anion Gap 17.6 H, BUN 33 H, Creatinine 1.38, Est GFR (Non-Af Amer) 38 L D, BUN/Creatinine Ratio 23.9 H, Random Glucose 213 H, Calcium 9.3, Calcium Adj for Albumin 9.5, Total Bilirubin 1.0, AST 962 H, ALT 669 H, Alkaline Phosphatase 93, B-Natriuretic Peptide 441, Total Protein 7.1, Albumin 3.4 06/01/19 21:39: Lactic Acid, Venous 2.6 H* 06/01/19 21:45: Acetaminophen 2.4 L 06/01/19 21:45: Amylase 62, Lipase 197 06/02/19 01:05: Lactic Acid, Venous 2.2 H* 06/02/19 10:28: Lactic Acid, Venous 1.5 06/02/19 10:28: WBC 16.5 H D, RBC 3.95 L, Hgb 11.9 L, Hct 36.7 L, MCV 92.9, MCH 30.1, MCHC 32.4, RDW 14.1 H, Plt Count 203, MPV 9.9, Immature Gran % (Auto) 0.40, Immature Gran # (Auto) 0.07 H, Neutrophils % 74.7, Lymphocytes % 18.2 L, Monocytes % 6.4, Eosinophils % 0.1, Basophils % 0.2, Nucleated RBC % 0.0, Neutrophils # 12.3 H, Lymphocytes # 3.00, Monocytes # 1.1 H, Eosinophils # 0.0, Absolute Basophils 0.0 06/02/19 10:28: Sodium 144 H, Plasma Sodium 144 H, Potassium 3.2 L, Chloride 111 H, Carbon Dioxide 23.2 L, Anion Gap 13.0, BUN 26 H, Creatinine 1.11, Est GFR (Non-Af Amer) 49 L D, BUN/Creatinine Ratio 23.4 H, Random Glucose 108 D, Calcium 9.2, Calcium Adj for Albumin 9.6, Total Bilirubin 1.4 H, AST 522 H, ALT 723 H, Alkaline Phosphatase 93, Total Protein 6.8, Albumin 3.1 L Discharge Location: [facility] Disposition: Home self-care Condition: Good Discharge Activity: Activity as tolerated Discharge Diet: General/regular food Referrals: Jeanine Navas MD [Primary Care Provider] - Additional Patient Instructions (free text): Obtain CBC and BMP in 1 week Prescriptions (Any new or edited meds): Cefpodoxime Proxetil 200 mg PO BID #8 tab Transmission Status: Pending to [facility] Azithromycin [Zithromax] 250 mg PO DAILY #4 tab Transmission Status: Pending to [facility] Complete Home Medications List: Complete Home Medication List: Acetaminophen [Tylenol] 650 mg PO Q8H PRN 09/04/17 Clotrimazole [Lotrimin Cream] 1 appl TP BID 09/04/17 Multivitamin [Multivitamins] 1 ea PO DAILY 09/04/17 furosemide 40 mg tablet 40 mg PO DAILY #30 tab 10/09/17 melatonin 5 mg tablet 5 mg PO HS #30 tab 06/17/18 Potassium Chloride [Klor-Con M20] 20 meq PO DAILY 06/01/19 Zinc Oxide 1 appl TOPICAL BID 06/01/19 Azithromycin [Zithromax] 250 mg PO DAILY #4 tab 06/02/19 Cefpodoxime Proxetil 200 mg PO BID #8 tab 06/02/19 Amb Orders for Discharge: Basic Metabolic Panel Time Frame: 1 Week, Facility: [facility], Location: Laboratory CBC Time Frame: 1 Week, Facility: [facility], Location: Laboratory
[2019-06-02] MEDS: ZINC OXIDE 30 APPL TUBE TP SCH (20:04)
[2019-06-02] MEDS: CLOTRIMAZOLE 15 APPL TUBE TP SCH (20:04)
[2019-06-02] MEDS ORDERED: MELATONIN 3,000 MCG TABLET PO SCH (21:00)
[2019-06-03 06:40] LABS: Hematocrit 32.3 % (37.0-47.0); Hemoglobin 10.5 gm/dL (12.5-16.0); Mean Cell Volume 91.5 fl (78-100); Mean Corpuscular Hemoglobin 29.7 pg (27-31); Mean Corpuscular Hgb Conc 32.5 g/dl (32-36); Mean Platelet Volume 10.3 fl (8-12.5); Neutrophil # 6.2 K/mm3 (1.3-6.0); Neutrophil % 59.6 % (42-75.0); Platelet Count 184 K/mm3 (150-450); Red Blood Count 3.53 M/mm3 (4.2-5.4); Red Cell Distribution Width 14.4 % (11.5-14.0); White Blood Count 10.4 K/mm3 (4.0-10.5)
[2019-06-03 06:53] LABS: Albumin * 2.7 gm/dl (3.4-5.0); Anion Gap 13.2 mmol/L (6.8-13.8); BUN/Creatinine Ratio 26.2 (9.0-21.6); Bilirubin, Total 0.3 mg/dL (0.0-1.1); Ca. Corrected For Albumin 9.4 mg/dL (8.4-10.2); Calcium * 8.7 mg/dL (7.9-10.9); Carbon Dioxide 21.7 mmol/L (24-32.6); Potassium 3.9 mmol/L (3.4-4.6); Total Protein 6.1 gm/dL (6.2-8.2)
[2019-06-03] MEDS ORDERED: FUROSEMIDE 40 MG TABLET PO SCH (09:00)
[2019-06-03] MEDS ORDERED: AZITHROMYCIN 250 MG TABLET PO SCH (09:00)
[2019-06-03] MEDS ORDERED: MULTIVITAMINS 1 CAP CAPSULE PO SCH (09:00)
[2019-06-03] MEDS ORDERED: POTASSIUM CHLORIDE 20 MEQ TABLET.SA PO SCH (09:00)
[2019-06-03] MEDS: ZINC OXIDE 30 APPL TUBE TP SCH (09:25)
[2019-06-03] MEDS: CLOTRIMAZOLE 15 APPL TUBE TP SCH (09:25)
--- NOTE | 2019-06-03 09:55 | DS ---
(1) Pneumonia of left lower lobe due to group B Streptococcus Problem: Acute (2) UTI (urinary tract infection) Problem: Acute Qualifiers: Urinary tract infection type: acute cystitis Hematuria presence: with hematuria Qualified Code(s): N30.01 - Acute cystitis with hematuria (3) Dementia Problem: Chronic Qualifiers: Dementia type: unspecified type Dementia behavioral disturbance: with behavioral disturbance Qualified Code(s): F03.91 - Unspecified dementia with behavioral disturbance (4) Sepsis Problem: Resolved Qualifiers: Sepsis type: sepsis due to unspecified organism Sepsis acute organ dysfunct ion status: with acute organ dysfunction Severe sepsis shock status: without septic shock (5) CKD (chronic kidney disease) stage 3, GFR 30-59 ml/min Problem: Acute (6) Arthritis Problem: Acute (7) Leukocytosis Problem: Acute (8) Lactic acidosis Problem: Resolved (9) Hypokalemia Problem: Acute (10) Hypernatremia Problem: Acute Hospital Course: 88-year-old female with a past medical history of dementia, anemia, asthma, arthritis, chronic kidney disease, hepatitis presents from [facility] with complaints of fever. On presentation she was found to have positive UA, chest x-ray positive for left lower lobe infiltrate. She was started on ceftriaxone in the emergency department. Vitals were stable on presentation and she had a fever of 39.1. She fever fever was admitted for sepsis with urinary tract infection. She also has a community-acquired pneumonia. She will need to complete a 4-day course of Cefpodoxime and azithromycin on discharge. Blood cultures showed 1 of 4 blood cultures as positive for gram- negative bacilli so the patient's discharge was put on hold on June 02, 2019. Today the lab believes the positive culture are likely a contaminant because it is growing something different than the urine. Her urine is positive for E. coli which is pansensitive. Patient is very stable, her white count has down trended, she has been afebrile for the past 24 hours. She is stable to be discharged home today. Follow-up with me in the office in 1 to 2 weeks. Procedures Performed: none Results and Findings: Pending Mircobiology Results 06/01/19 22:15 Blood Blood Culture - Preliminary Ruling Out Pathogen 06/01/19 21:39 Blood Blood Culture - Preliminary NO GROWTH 24 HOURS Lab Pending Results 06/01/19 21:32: Influenza Type A Ag Negative, Influenza Type B Ag Negative 06/01/19 21:33: Urine Color Yellow, Urine Appearance Clear, Urine pH 5.5, Ur Specific [place] 1.020, Urine Protein Negative, Urine Glucose (UA) 250 H, Urine Ketones Negative, Urine Blood 5 H, Urine Nitrate Positive H, Urine Bilirubin Negative, Urine Urobilinogen Normal, Ur Leukocyte Esterase Negative, Urine RBC None seen, Urine WBC 0-5, Ur Epithelial Cells 0-5, Urine Bacteria 1+ H, Urine Culture Comments Culture to follow 06/01/19 21:39: WBC 8.3, RBC 3.97 L, Hgb 12.0 L, Hct 36.5 L, MCV 91.9, MCH 30.2, MCHC 32.9, RDW 13.9, Plt Count 215, MPV 10.0, Immature Gran % (Auto) 0.20, Immature Gran # (Auto) 0.02, Neutrophils % 80.5 H, Lymphocytes % 12.8 L, Monocytes % 6.3, Eosinophils % 0.0, Basophils % 0.2, Nucleated RBC % 0.0, Neutrophils # 6.7 H, Lymphocytes # 1.06 L, Monocytes # 0.5, Eosinophils # 0.0, Absolute Basophils 0.0 06/01/19 21:39: Sodium 141, Plasma Sodium 143 H, Potassium 3.7, Chloride 106, Carbon Dioxide 21.1 L, Anion Gap 17.6 H, BUN 33 H, Creatinine 1.38, Est GFR (Non-Af Amer) 38 L D, BUN/Creatinine Ratio 23.9 H, Random Glucose 213 H, Calcium 9.3, Calcium Adj for Albumin 9.5, Total Bilirubin 1.0, AST 962 H, ALT 669 H, Alkaline Phosphatase 93, B-Natriuretic Peptide 441, Total Protein 7.1, Albumin 3.4 06/01/19 21:39: Lactic Acid, Venous 2.6 H* 06/01/19 21:45: Acetaminophen 2.4 L 06/01/19 21:45: Amylase 62, Lipase 197 06/02/19 01:05: Lactic Acid, Venous 2.2 H* 06/02/19 10:28: Lactic Acid, Venous 1.5 06/02/19 10:28: WBC 16.5 H D, RBC 3.95 L, Hgb 11.9 L, Hct 36.7 L, MCV 92.9, MCH 30.1, MCHC 32.4, RDW 14.1 H, Plt Count 203, MPV 9.9, Immature Gran % (Auto) 0.40, Immature Gran # (Auto) 0.07 H, Neutrophils % 74.7, Lymphocytes % 18.2 L, Monocytes % 6.4, Eosinophils % 0.1, Basophils % 0.2, Nucleated RBC % 0.0, Neutrophils # 12.3 H, Lymphocytes # 3.00, Monocytes # 1.1 H, Eosinophils # 0.0, Absolute Basophils 0.0 06/02/19 10:28: Sodium 144 H, Plasma Sodium 144 H, Potassium 3.2 L, Chloride 111 H, Carbon Dioxide 23.2 L, Anion Gap 13.0, BUN 26 H, Creatinine 1.11, Est GFR (Non-Af Amer) 49 L D, BUN/Creatinine Ratio 23.4 H, Random Glucose 108 D, Calcium 9.2, Calcium Adj for Albumin 9.6, Total Bilirubin 1.4 H, AST 522 H, ALT 723 H, Alkaline Phosphatase 93, Total Protein 6.8, Albumin 3.1 L 06/03/19 06:25: WBC 10.4 D, RBC 3.53 L, Hgb 10.5 L, Hct 32.3 L, MCV 91.5, MCH 29.7, MCHC 32.5, RDW 14.4 H, Plt Count 184, MPV 10.3, Immature Gran % (Auto) 0.30, Immature Gran # (Auto) 0.03, Neutrophils % 59.6, Lymphocytes % 29.8, Monocytes % 8.5, Eosinophils % 1.4, Basophils % 0.4, Nucleated RBC % 0.0, Neutrophils # 6.2 H, Lymphocytes # 3.10, Monocytes # 0.9, Eosinophils # 0.2, Absolute Basophils 0.0 06/03/19 06:25: Sodium 141, Plasma Sodium 141, Potassium 3.9 D, Chloride 110 H, Carbon Dioxide 21.7 L, Anion Gap 13.2, BUN 27 H, Creatinine 1.03, Est GFR (Non- Af Amer) 54 L, BUN/Creatinine Ratio 26.2 H, Random Glucose 120 H, Calcium 8.7, Calcium Adj for Albumin 9.4, Total Bilirubin 0.3, AST 173 H, ALT 403 H, Alkaline Phosphatase 82, Total Protein 6.1 L, Albumin 2.7 L Discharge Location: [facility] Disposition: Home self-care Condition: Good Discharge Activity: Activity as tolerated Discharge Diet: General/regular food Referrals: Jeanine Navas MD [Primary Care Provider] - Problem Oriented Discharge Instructions to Patient/Family: Urinary Tract Infection, Adult, [id number], Community-Acquired Pneumonia, Adult, [id number] Complete Home Medications List: Complete Home Medication List: Acetaminophen [Tylenol] 650 mg PO Q8H PRN 09/04/17 Clotrimazole [Lotrimin Cream] 1 appl TP BID 09/04/17 Multivitamin [Multivitamins] 1 ea PO DAILY 09/04/17 furosemide 40 mg tablet 40 mg PO DAILY #30 tab 10/09/17 melatonin 5 mg tablet 5 mg PO HS #30 tab 06/17/18 Potassium Chloride [Klor-Con M20] 20 meq PO DAILY 06/01/19 Zinc Oxide 1 appl TOPICAL BID 06/01/19 Azithromycin [Zithromax] 250 mg PO DAILY #4 tab 06/02/19 Cefpodoxime Proxetil 200 mg PO BID #8 tab 06/02/19
[2019-06-03 10:17] VITALS: BP 125/46
== END 2019-06-03 10:45 | disposition home or self-care (01) | DRG 871 ==
LOC: ER 21:11 → MS 21:11
PROVIDERS: ADMIT Internal Medicine; ATTEND Internal Medicine
DX: J15.3 Pneumonia due to streptococcus, group B; B96.20 Unspecified Escherichia coli [E. coli] as the cause of diseases classified elsewhere; Y95 Nosocomial condition; A41.50 Gram-negative sepsis, unspecified; E87.0 Hyperosmolality and hypernatremia; M15.9 Polyosteoarthritis, unspecified; R65.20 Severe sepsis without septic shock; E87.2 Acidosis; N18.3 Chronic kidney disease, stage 3 (moderate); N30.01 Acute cystitis with hematuria; E87.6 Hypokalemia; F03.91 Unspecified dementia, unspecified severity, with behavioral disturbance
CPT/HCPCS: 36415; 71010; 71045; 80053; 81001; 82150; 83519; 83605; 83690; 83880; 85025; 87040; 87077; 87081; 87086; 87186; 87400; 87449; 94760; 96361; 96365; 96367; 99285; G0378